=== PATIENT | male | born 1985 | race Caucasian/White ===

== ENCOUNTER 2017-01-20 18:36 | Emergency (ER) | payer BC ==
[2017-01-20] MEDS ORDERED: CLINDAMYCIN-D5W 900 MG/50 ML*** 900 MG/50 ML BAG IV STA (19:19)
[2017-01-20] MEDS ORDERED: Phenergan 25 MG INJ IV ONE (19:20)
[2017-01-20] MEDS ORDERED: MORPHINE SULFATE 4 MG INJ IV ONE (19:20)
--- NOTE | 2017-01-20 19:22 | ERPHSYRPT ---
- History of Present Illness Time Seen by Provider: 01/20/17 19:13 Source: patient Exam Limitations: no limitations Patient Subjective Stated Complaint: pt here for pain and swelling to right leg since last friday. states. he was running and heard a pop. Triage Nursing Assessment: pt swelling and bruising to lower leg and ankle, pt deines any direct injury Physician History: ONE WEEK AGO PT WAS JOGGING ON A LEVEL SURFACE AND SUDDENLY FELT A SHARP PAIN IN HIS RIGHT CALF. FOR THE PAST 3 DAYS PT'S RIGHT CALF HAS BEEN SWELLING AND HAS PURPLE DISCOLORATION. PT DENIES FEVER, VOMITING, CHEST PAIN, SHORTNESS OF AIR. Allergies/Adverse Reactions: No Known Drug Allergies Allergy (Unverified 01/20/17 18:55) Hx Tetanus, Diphtheria Vaccination/Date Given: No Hx Influenza Vaccination/Date Given: Yes Hx Pneumococcal Vaccination/Date Given: No - Review of Systems Constitutional: No Fever Respiratory: No Dyspnea Cardiac: No Chest Pain Abdominal/Gastrointestinal: No Vomiting Musculoskeletal: Other (RIGHT LEG SWELLING, PURPLE DISCOLORATION AND PAIN) All Other Systems: Reviewed and Negative - Past Medical History Pertinent Past Medical History: No - Past Surgical History Past Surgical History: No - Social History Smoking Status: Never smoker Exposure to second hand smoke: No Drug Use: none Patient Lives Alone: No - Nursing Vital Signs Nursing Vital Signs: Initial Vital Signs Temperature 98.8 F 01/20/17 18:50 Pulse Rate 70 01/20/17 18:50 Respiratory Rate 16 01/20/17 18:50 Blood Pressure 136/78 01/20/17 18:50 O2 Sat by Pulse Oximetry 97 01/20/17 18:50 Pain Scale Pain Intensity 4 - Physical Exam General Appearance: alert Eyes, Ears, Nose, Throat Exam: TMs normal, pharynx normal, moist mucous membranes Neck Exam: normal inspection Cardiovascular/Respiratory Exam: normal breath sounds, heart sounds normal Gastrointestinal/Abdominal Exam: soft (B.S. NORMAL) Back Exam: normal range of motion Hips Exam: bilateral: normal range of motion Legs Exam: right leg: swelling (MILD EDEMA, WARMTH, TENDERNESS AND VIOLACIOUS DISCOLORATION OF THE RIGHT CALF. ), bilateral leg: normal range of motion Knees Exam: bilateral knee: normal range of motion Ankle Exam: bilateral ankle: normal range of motion Foot Exam: bilateral foot: normal range of motion Neuro/Tendon Exam: normal sensation, normal motor functions Mental Status Exam: alert, cooperative SpO2 Interpretation: normal SpO2: 97 Oxygen Delivery: Room Air - Course Nursing assessment & vital signs reviewed: Yes - Radiology Ultrasound Exam Right Venous Lower Extremity Ultrasound: Other (TECH REPORT: NO DVT) Ordered Tests: Active Orders 24 hr Category Date Time Status IV Insertion STAT Care 01/20/17 19:18 Active LOWER LEG Stat Exams 01/20/17 Taken Ultrasound Unilateral Extremities [VENOUS UNILAT/ Exams 01/20/17 Taken LIMITED EXTREMIT] [US] Stat BLOOD CULTURE Stat Lab 01/20/17 19:53 Received CBC W DIFF Stat Lab 01/20/17 19:40 Completed CMP Stat Lab 01/20/17 19:40 Completed Erythrocyte Sedimentation Rate Stat Lab 01/20/17 19:40 Completed Medication Summary Generic Name Dose Route Start Last Admin Trade Name Freq PRN Reason Stop Dose Admin Sodium Chloride 1,000 mls @ 100 mls/hr 01/20/17 19:30 01/20/17 19:51 Sodium Chloride 0.9% 1000 Ml IV 02/19/17 19:29 100 mls/hr .Q10H SAE Administration Discontinued Medications Generic Name Dose Route Start Last Admin Trade Name Freq PRN Reason Stop Dose Admin Clindamycin HCl/Dextrose 900 mg in 50 mls @ 100 mls/hr 01/20/17 19:19 20:01 Clindamycin-D5w 900 Mg/50 Ml IV 01/20/17 19:48 100 mls/hr STAT STA Administration Clindamycin HCl/Dextrose Confirm 01/20/17 19:26 Clindamycin-D5w 900 Mg/50 Ml Administered 01/20/17 19:27 Dose 900 mg in 50 mls @ ud IV .STK-MED ONE Morphine Sulfate 4 mg 01/20/17 19:20 01/20/17 19:57 Morphine Sulfate 4 Mg Inj IV 01/20/17 19:21 4 mg STAT ONE Administration Morphine Sulfate Confirm 01/20/17 19:26 Morphine Sulfate 4 Mg Inj Administered 01/20/17 19:27 Dose 4 mg .ROUTE .STK-MED ONE Promethazine HCl 12.5 mg 01/20/17 19:20 01/20/17 19:54 Phenergan 25 Mg Inj IV 01/20/17 19:21 12.5 mg STAT ONE Administration Promethazine HCl Confirm 01/20/17 19:26 Phenergan 25 Mg Inj Administered 01/20/17 19:27 Dose 25 mg .ROUTE .STK-MED ONE Lab/Rad Data: Laboratory Result Diagrams 01/20/17 19:40 01/20/17 19:40 Laboratory Results 01/20/17 01/20/17 01/20/17 Range/Units 19:40 19:40 19:40 WBC 6.5 (4.0-10.5) K/mm3 RBC 5.46 (4.1-5.6) M/mm3 Hgb 13.7 (12.5-18.0) gm/dl Hct 42.5 (42-50) % MCV 77.8 L (78-100) fl MCH 25.1 L (26-32) pg MCHC 32.2 (32-36) g/dl RDW 14.2 H (11.5-14.0) % Plt Count 182 (150-450) K/mm3 MPV 10.5 H (6-9.5) fl Gran % 67.7 H (36.0-66.0) % Lymphocytes % 21.0 L (24.0-44.0) % Monocytes % 8.4 (0.0-12.0) % Eosinophils % 2.6 (0.00-5.0) % Basophils % 0.3 (0.0-0.4) % Basophils # 0.02 (0-0.4) ESR 4 (0-15) mm/hr Sodium 141 (136-145) mEq/L Potassium 3.9 (3.5-5.1) mEq/L Chloride 106 (98-107) mEq/L Carbon Dioxide 25.9 (21-32) mEq/L Anion Gap 13.3 (5-15) MEQ/L BUN 17 (9-20) mg/dL Creatinine 1.02 (0.55-1.30) mg/dl Estimated GFR > 60 ML/MIN Glucose 133 H (70-110) MG/DL Calcium 9.0 (8.5-10.1) mg/dL Total Bilirubin 0.90 (0.2-1.0) mg/dL AST 33 (15-37) U/L ALT 43 (12-78) U/L Alkaline Phosphatase 61 (46-116) U/L Serum Total Protein 7.3 (6.4-8.2) gm/dL Albumin 4.0 (3.4-5.0) g/dL - Departure Time of Disposition: 20:56 Departure Disposition: Home Clinical Impression: CELLULITIS OF THE RIGHT LEG, RIGHT CALF STRAIN Condition: Stable Critical Care Time: No Referrals: ADALID NAVARRO [employer] [Primary Care Provider] - Instructions: Cellulitis -- Adult, Calf Muscle Strain Additional Instructions: FOLLOW UP WITH PRIVATE DOCTOR TOMORROW. ELEVATE RIGHT LEG 12 INCHES ABOVE HEART LEVEL FOR 24 HOURS. Prescriptions: Naproxen [Naprosyn] 500 mg PO Q12H PRN PRN #20 tablet PRN Reason: Pain Clindamycin HCl 300 mg PO Q6H #40 capsule
[2017-01-20] MEDS ORDERED: CLINDAMYCIN-D5W 900 MG/50 ML*** 900 MG/50 ML BAG IV ONE (19:26)
[2017-01-20] MEDS ORDERED: Sodium Chloride 0.9% 1000 ML 1,000 ML ONE (19:26)
[2017-01-20] MEDS ORDERED: MORPHINE SULFATE 4 MG INJ ONE (19:26)
[2017-01-20] MEDS ORDERED: Phenergan 25 MG INJ ONE (19:26)
[2017-01-20] MEDS ORDERED: Sodium Chloride 0.9% 1000 ML 1,000 ML IV SCH (19:30)
[2017-01-20 19:59] LABS: BASOPHIL % 0.3 % (0.0-0.4); Eosinophil % 2.6 % (0.00-5.0); Granulocytes % 67.7 % (36.0-66.0); Mean Cell Volume 77.8 fl (78-100); Mean Corpuscular Hemoglobin 25.1 pg (26-32); Mean Platelet Volume 10.5 fl (6-9.5); Monocytes % 8.4 % (0.0-12.0); Platelet Count 182 K/mm3 (150-450); Red Blood Count 5.46 M/mm3 (4.1-5.6); Red Cell Distribution Width 14.2 % (11.5-14.0); White Blood Count 6.5 K/mm3 (4.0-10.5)
[2017-01-20 20:23] LABS: ALKALINE PHOSPHATASE 61 U/L (46-116); ANION GAP 13.3 MEQ/L (5-15); BLOOD UREA NITROGEN 17 mg/dL (9-20); CHLORIDE 106 mEq/L (98-107); Carbon Dioxide 25.9 mEq/L (21-32); Glucose 133 MG/DL (70-110); Potassium 3.9 mEq/L (3.5-5.1); SGOT/AST 33 U/L (15-37); SGPT/ALT 43 U/L (12-78); SODIUM 141 mEq/L (136-145); Total Protein 7.3 gm/dL (6.4-8.2)
[2017-01-20] MEDS ORDERED: CLEOCIN 150 MG CAPSULE PO ONE (20:56)
[2017-01-20] MEDS ORDERED: CLEOCIN 150 MG CAPSULE ONE (21:01)
[2017-01-20 21:09] VITALS: BP 127/76; PULSE 88; O2SAT 99
--- NOTE | 2017-01-21 08:39 | XRAY ---
Indication: Leg pain. Two-dimensional sonogram and color Doppler imaging of the major venous vessels of the right leg was performed. Comparison: None No thrombus seen in the examined deep venous vessels of the right leg including greater saphenous vein. Veins demonstrate normal compressibility. Venous waveforms are normal with and without augmentation. Impression: Right leg negative for DVT. Comment: Preliminary report was given.
--- NOTE | 2017-01-21 08:41 | XRAY ---
Indication: Pain. Comparison: None 2 views of the right lower leg obtained. No bony, articular, or soft tissue abnormalities.
== END 2017-01-20 21:09 | disposition home or self-care (01) ==
LOC: ED 18:36
DX: L03.115 Cellulitis of right lower limb (principal); S86.811A Strain of other muscle(s) and tendon(s) at lower leg level, right leg, initial encounter; Y93.02 Activity, running
CPT/HCPCS: 36000; 36415; 73590; 80053; 85025; 85652; 87040; 93971; 96374; 96375; 99283; J2270; J2550; A9270-GY